=== PATIENT | female | born 1970 | race Caucasian/White ===

== ENCOUNTER 2025-03-22 18:43 | Emergency (ER) | payer OTHER, SELFPAY ==
[2025-03-22 18:58] VITALS: BP 164/101
[2025-03-22 19:33] LABS: % Basophils 0.3 % (0-2); % Eosinophils 5.1 % (0-6); % Immature Granulocytes 0.3 % (0-0.5); % Monocytes 7.4 % (1.7-9.3); % Neutrophils 72.9 % (42.2-75.2); Absolute Eosinophils 0.5 10^3/uL (0-0.7); Absolute Lymphocytes 1.2 10^3/uL (1.2-3.4); Absolute Monocytes 0.7 10^3/uL (0.1-0.6); Absolute Neutrophils 6.4 10^3/uL (1.4-6.5); Hematocrit 36.4 % (37.0-47.0); Hemoglobin 12.1 g/dL (12.0-16.0); Mean Corp Hgb Conc. 33.2 g/dL (33.0-37.0); Mean Corpuscular Hgb 29.4 pg (27.0-31.0); Mean Corpuscular Volume 88.6 fL (81.0-99.0); Nucleated Red Blood Cells % 0 %; Platelet Count 322 10^3/uL (130-400); Red Blood Cell Count 4.11 10^6/uL (4.20-5.40); White Blood Cell Count 8.8 10^3/uL (4.8-10.8)
[2025-03-22 19:41] LABS: HCG, Serum Qualitative Screen Negative
[2025-03-22 19:56] LABS: ALT (SGPT) 13 U/L (0-35); AST (SGOT) 17 U/L (14-36); Albumin 4.8 g/dl (3.5-5.0); Alkaline Phosphatase 58 U/L (38-126); Blood Urea Nitrogen 8 mg/dl (7-17); Calcium 9.4 mg/dl (8.4-10.2); Carbon Dioxide 25 mmol/L (22-30); Chloride 109 mmol/L (98-107); Glucose 111 mg/dl (70-99); Sodium 140 mmol/L (135-145); Total Bilirubin 0.3 mg/dl (0.2-1.3); Total Protein 7.3 g/dl (6.3-8.2); eGFR > 60.00
[2025-03-22 20:04] LABS: Troponin I < 0.012 ng/ml
[2025-03-22 20:21] VITALS: BP 126/80
[2025-03-22 20:37] VITALS: BMI 29.4
[2025-03-22 21:00] VITALS: BP 132/82
--- NOTE | 2025-03-22 21:27 | ED.GENMED ---
History of Present Illness
General
Chief Complaint: Dizziness
Time Seen by Provider: 03/22/25 21:26
History of Present Illness
History of Present Illness:
REVIEW OF OLD RECORDS
I reviewed records, the patient went to the OR with Dr. 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
She also has a relatively recent diagnosis of leukocytoclastic vasculitis followed at [facility]
Note:
CHIEF COMPLAINT(S)
- Shortness of breath
- Rapid heart rate
- Dizziness and vision changes
HISTORY OF PRESENT ILLNESS
The patient is a 54-year-old female who presents to the emergency department with episodes of shortness of breath, dizziness, and increased heart rate over the past two weeks, with symptoms persisting intermittently for over a month. The patient
described an episode on the night of graduation, where she experienced dizziness and vision disturbances, and her heart rate elevated to 150 beats per minute. The patient mentioned undergoing a skin biopsy returning as leukocytoclastic vasculitis.
She is concerned that her condition is vasculitis affecting her blood vessels, causing symptoms. She has a history of inappropriate sinus tachycardia, and was previously on beta-lucio treatment. A recent episode recorded her heart rate at 215
beats per minute. Today, she experienced shortness of breath and light-headedness, with peripheral oxygen saturation between 92�94%, though currently stable at the hospital. Symptoms such as vision alterations described as blurred vision have
occurred. Additionally, the patient reports a sudden appearance of visible blue veins that appeared two days ago, similar to superficial varicose veins. The emotional burden of her symptoms appears significant, with anxiety being noted as a
potential contributing factor.
EXTERNAL RECORDS REVIEWED
The patients medical office manager recommended further evaluation due to increasing symptoms, including tachyarrhythmia. Prior diagnostics included a biopsy confirming leukocytoclastic vasculitis.
CHRONIC MEDICAL CONDITIONS SIGNIFICANTLY AFFECTING CARE
- Inappropriate sinus tachycardia
REVIEW OF SYSTEMS
- Cardiovascular: Rapid heart rate, feeling of heart pounding.
- Respiratory: Shortness of breath reported.
- Neurological: Dizziness, vision disturbances described as blurred vision.
- Skin: Appearance of superficial varicose-like veins and bruising.
PHYSICAL EXAM
- Vital signs reviewed.
- Respiratory: Lung auscultation unremarkable.
- General: Well appearing in no distress
- HEENT: Moist oral mucosa
- Cardiovascular: No murmurs, borderline tachycardic heart rate, regular rhythm, No chest wall tenderness
- Pulmonary: No respiratory distress, breath sounds are clear and equal
- Abdomen: Soft with no peritoneal signs, no tenderness
- Neurologic: Excellent strength all extremities, no coordination deficits
- Psychiatric: Appropriate mental status, normal insight and judgement, appears somewhat anxious
- Extremities: Nontender, no edema, moves all extremities equally
- Skin: No rash, no lesions
PROBLEM LIST
- Acute: Shortness of breath, tachycardia, dizziness
- Chronic: Inappropriate sinus tachycardia, leukocytoclastic vasculitis
PLAN
- Perform a computed tomography scan of the thorax to rule out significant pathology such as pulmonary embolism.
- Provide reassurance concerning the overall safety and necessity of imaging for diagnostic clarity.
- Address concerns around vasculitis impact; maintain consideration of anxiety contributing to symptomatology.
DIFFERENTIAL DIAGNOSIS
The Differential Diagnosis includes, in no particular order and is not limited to:
- Pulmonary embolism
- Inappropriate sinus tachycardia
- Vasculitis affecting other organ systems
- Anxiety
- Cardiomyopathy
- Hyperthyroidism
- Anemia
- Electrolyte imbalance
- Pheochromocytoma
- Hyperadrenergic state
EKG
My independent EKG interpretation is:
- Rhythm: Sinus
- Heart Rate: 92 bpm
- [place]: Normal
- ST Segment: No acute ST changes
- Comparative Analysis: No change from the previous EKG dated 10/03/21
CARE-UPDATE
03/22/25 - 21:43
Lab results confirm CBC, chemistries, and antroponin are negative, and test (HCG) is also negative. Patient displays emotional distress, tearfulness, and denies anxiety, but her suggests symptoms may be partially anxiety-related.
CARE-UPDATE
03/22/25 - 23:[address] scan showed no alarming findings, including no signs of a blood clot or significant vasculitis. The vessels appear open, and a C-reactive protein test was normal, ruling out major vasculitic processes. The patients heart rate has
decreased to 90, still within normal limits. The patient continues to experience anxiety, but reassurance has been provided, emphasizing that there is no immediate life-threatening concern. Dermatology consultation attempts were made, with no
response yet. The plan is to discharge the patient, as the condition may resolve spontaneously. I did attempt to call the patient's dolly operator on the provide cell phone however went straight to voicemail on reassessment, she does overall feel
more comfortable. She will follow-up with her nib adjuster/medical office manager at [facility]
RADIOLOGY
CTA shows no evidence of PE.
Past History
Past History
ED Past Medical History: Other (Tachycardia)
ED Past Surgical History: None
Social History
Tobacco: Non-smoker
Alcohol: None
Phy Exam
Physical Exam
Physical Exam:
See HPI
Course
Orders/Labs/Results
Orders:
Orders
03/22/25 19:03
Electrocardiogram (*1) Urgent
Reason for Study: Chest Pain
EKG- Treatment ONCE
03/22/25 19:04
Test Result ONCE
03/22/25 19:17
C-Reactive Protein Urgent
Comment: ADD ON
Complete Blood Count/With Diff Urgent
Comprehensive Metabolic Panel Urgent
Erythrocyte Sed Rate Urgent
Comment: ADD ON
HCG, Serum Qualitative Screen Urgent
Comment: Notify provider if positive test present
Troponin I Urgent
03/22/25 21:41
Add On- LAB Urgent
Tests Added?: cRP, ESR
CT Chest PE Study Urgent
Comment:
Reason For Exam: tachycardia sob
Abnormal Lab Results
03/22/25
19:17
RBC 4.11 L 10^6/uL
(4.20-5.40)
Hct 36.4 L %
(37.0-47.0)
Absolute Monos (auto) 0.7 H 10^3/uL
(0.1-0.6)
Lymphocytes % 14.0 L %
(20.5-51.1)
Chloride 109 H mmol/L
(98-107)
Glucose 111 H mg/dl
(70-99)
03/22/25 19:17
03/22/25 19:17
Vital Signs
Initial and Last Documented VS:
Initial Vital Signs
Temp Pulse Resp BP Pulse Ox
36.7 C 98 16 164/101 98
03/22/25 18:58 03/22/25 18:58 03/22/25 18:58 03/22/25 18:58 03/22/25 18:58
Last Documented Vital Signs
Temp Pulse Resp BP Pulse Ox
36.7 C 86 15 132/82 98
03/22/25 18:58 03/22/25 21:30 03/22/25 21:30 03/22/25 21:00 03/22/25 18:58
*Pulse Oximetry
Patient hypoxic: no (97% room air)
*Hospice Clinical Supervisor Interpretation
Rate: tachycardiac
Interpretation: abnormal
Heart Rate: 102
Rhythm: sinus
*Critical Care Note
Total Time (30-74mins, 75-104mins- exclusive of procedures): Not Applicable
ED Attending Note
-
Portions of this chart may have been created with voice recognition software.� Occasional wrong word or��sound alike� substitutions may have occurred due to the inherent limitations of voice recognition software.
Discharge Plan
Departure
Prescriptions:
No Action
propranolol 80 MG tablet
80 mg PO DAILY
Vit C/Zn Gluc/Herbal No.325 [[place]berry Zinc Vit C Lozenge] 1 EACH Lozenge
2 ea PO DAILY
Referrals:
Alla Ramirez, DO [Family Provider]
Interventions
Interventions:
*Risk Screen - Suicide Last Done: 03/22/25 18:58
*General Assessment Last Done: 03/22/25 20:37
*Neglect/Abuse Screening Last Done: 03/22/25 18:58
*ED- Fall Risk Assessment Last Done: 03/22/25 20:37
*ED COVID-19 Vaccine History Last Done: 03/22/25 20:37
ED- Neurological Assessment Last Done: 03/22/25 21:43
ED Swallowing Screen Last Done: 03/22/25 21:43
Discharge Date and Time
Print Language: CYPRIOT
[2025-03-22 21:57] LABS: Erythrocyte Sed Rate 2 mm/hour (0-20)
[2025-03-22 22:49] VITALS: BP 135/89
[2025-03-22 22:56] LABS: C-Reactive Protein < 5.00 mg/L (0.0-10.00)
== END 2025-03-23 | disposition home or self-care (01) ==
LOC: EMR 18:43
PROVIDERS: Emergency Medicine; EMERGENCY PHYSICIAN Emergency Medicine; FAMILY PHYSICIAN Family Medicine
DX: R42 Dizziness and giddiness (principal); I47.11 Inappropriate sinus tachycardia, so stated; F41.9 Anxiety disorder, unspecified
CPT/HCPCS: 99284; 71275; 80053; 84484; 84703; 85025; 85652; 86140; 93005; Q9967